=== PATIENT | female | born 1985 | race Hispanic/Latino ===

== ENCOUNTER 2022-03-26 20:08 | Emergency (ER) | payer OTHER ==
[~2022-03-26] VITALS: Ht 157.5 cm; Wt 65.5 kg
[2022-03-26] MEDS: SODIUM CHLORIDE 0.9% 1000ML 1,000 ML IV STA (20:45)
[2022-03-26] MEDS: KETOROLAC TROMETHAMINE 30 MG/ML VIAL IV ONE (20:45)
[2022-03-26] MEDS: ONDANSETRON HCL INJ 2MG/ML 2ML 2 MG/ML VIAL IV ONE (20:45)
[2022-03-26] MEDS: FAMOTIDINE 20 MG/2 ML VIAL IV ONE (20:52)
[2022-03-26] MEDS ORDERED: ONDANSETRON HCL INJ 2MG/ML 2ML 2 MG/ML VIAL ONE (20:55)
[2022-03-26] MEDS ORDERED: FAMOTIDINE 20 MG/2 ML VIAL IV ONE (20:55)
[2022-03-26] MEDS ORDERED: SODIUM CHLORIDE 0.9% 1000ML 1,000 ML ONE (20:55)
[2022-03-26] MEDS ORDERED: KETOROLAC TROMETHAMINE 30 MG/ML VIAL ONE (20:59)
[2022-03-26] MEDS ORDERED: IOPAMIDOL 370 MG/ML 100 ML INFUS..BTL INJ ONE (21:01)
== END 2022-03-26 22:31 | disposition home or self-care (01) ==
LOC: FSED 20:20
DX: R10.31 Right lower quadrant pain (principal); R19.7 Diarrhea, unspecified; R11.0 Nausea; Z98.84 Bariatric surgery status
CPT/HCPCS: 74177; 80053; 81003; 81025; 85025; 99284; J1885; J2405; J7030; Q9967

== ENCOUNTER 2022-09-03 17:47 | Emergency (ER) | payer OTHER ==
[~2022-09-03] VITALS: Ht 154.9 cm; Wt 65.8 kg
[2022-09-03] MEDS ORDERED: TETANUS/DIPHTHERIA TOX ADULT 0.5 ML SYR IM ONE (19:30)
[2022-09-03] MEDS ORDERED: TETANUS/DIPHTHERIA TOX ADULT 0.5 ML SYR ONE (20:08)
[2022-09-03] MEDS ORDERED: NEOMYCIN/POLYMYX/BACITR OINT 0.9 GM PKT ONE (21:19)
[2022-09-03] MEDS ORDERED: NAPROSYN500 MG PO (21:30)
[2022-09-03] MEDS ORDERED: BACITRACIN15 GM TOP (21:33)
[2022-09-03] MEDS ORDERED: CLEOCIN HCL300 MG PO (21:33)
[2022-09-03 21:45] VITALS: BP 136/70
== END 2022-09-03 21:45 | disposition home or self-care (01) ==
LOC: FSED 18:02
DX: R50.9 Fever, unspecified (principal); S01.01XA Laceration without foreign body of scalp, initial encounter; Y04.0XXA Assault by unarmed brawl or fight, initial encounter; Y92.89 Other specified places as the place of occurrence of the external cause; Z98.84 Bariatric surgery status
CPT/HCPCS: 70450; 72125; 90471; 90714; 99283

== ENCOUNTER 2024-09-15 08:02 | Emergency (ER) | payer SELFPAY ==
[~2024-09-15] VITALS: Ht 154.9 cm; Wt 67.8 kg
[~2024-09-15 08:02] MED LIST: BACITRACIN15 GM TOP; CLEOCIN HCL300 MG PO; NAPROSYN500 MG PO
[2024-09-15 08:15] VITALS: PULSE 72; RESP 16; TEMP 97.8; O2SAT 95
== END 2024-09-15 09:39 | disposition home or self-care (01) ==
LOC: FSED 09:06
DX: N64.4 Mastodynia (principal); Z98.84 Bariatric surgery status
CPT/HCPCS: 99284